=== PATIENT | female | born 1955 | race Caucasian/White ===

== ENCOUNTER 2017-11-02 08:55 | Outpatient (CLI) | payer OTHER | END 2017-11-02 09:06 | disposition home or self-care (01) | LOC: SONOGRAMA 08:55 | DX: E04.2 Nontoxic multinodular goiter (principal) ==

== ENCOUNTER → 2018-07-11 | Outpatient (CLI) | payer OTHER | END | disposition home or self-care (01) | LOC: NUCLEAR 13:00 | DX: C73 Malignant neoplasm of thyroid gland (principal); E89.0 Postprocedural hypothyroidism | CPT/HCPCS: 79005; A9517 ==

== ENCOUNTER → 2018-07-18 | Outpatient (CLI) | payer OTHER | END | disposition home or self-care (01) | LOC: NUCLEAR 12:47 | DX: C73 Malignant neoplasm of thyroid gland (principal); E89.0 Postprocedural hypothyroidism ==

== ENCOUNTER → 2019-08-30 | Outpatient (CLI) | payer OTHER | END | disposition home or self-care (01) | LOC: NUCLEAR 13:24 | DX: C73 Malignant neoplasm of thyroid gland (principal); E89.0 Postprocedural hypothyroidism | CPT/HCPCS: 78018; 78020; A9528 ==